=== PATIENT | female | born 1980 | race Caucasian/White ===

== ENCOUNTER 2021-01-04 00:08 | Emergency (ER) | payer OTHER ==
[~2021-01-04] VITALS: Ht 152.4 cm; Wt 69.9 kg
[2021-01-04 00:12] VITALS: BP 109/67
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
[2021-01-04] MEDS ORDERED: IBUPROFEN 600 MG TABLET PO ONE (02:00)
[2021-01-04] MEDS ORDERED: IBUP-1958 PO (02:01)
[2021-01-04] MEDS ORDERED: IBUPROFEN 600 MG TABLET ONE (02:17)
== END 2021-01-04 02:27 | disposition home or self-care (01) ==
LOC: ER 00:08
DX: M79.662 Pain in left lower leg (principal); V49.69XA Unspecified car occupant injured in collision with other motor vehicles in traffic accident, initial encounter; Y93.89 Activity, other specified; Y92.413 State road as the place of occurrence of the external cause; Y99.8 Other external cause status
CPT/HCPCS: 71045-TC; 73590-TC